=== PATIENT | female | born 1960 | race African-American/Black ===

== ENCOUNTER 2018-02-22 13:54 | Emergency (ER) | payer OTHER ==
[~2018-02-22] VITALS: Ht 165.1 cm; Wt 56.7 kg
[2018-02-22] MEDS ORDERED: MOBIC15 MG PO (14:52)
[2018-02-22 15:40] VITALS: BP 115/78
== END 2018-02-22 15:48 | disposition home or self-care (01) ==
LOC: ER 13:54
DX: S97.02XA Crushing injury of left ankle, initial encounter (principal); W23.1XXA Caught, crushed, jammed, or pinched between stationary objects, initial encounter; Y92.89 Other specified places as the place of occurrence of the external cause; Y93.89 Activity, other specified; Y99.8 Other external cause status

== ENCOUNTER 2018-06-26 12:29 | Emergency (ER) | payer OTHER ==
[~2018-06-26] VITALS: Ht 165.1 cm; Wt 64.9 kg
[~2018-06-26 12:29] MED LIST: MOBIC15 MG PO
[2018-06-26] MEDS ORDERED: VENTOLIN HFA 1818 GM INH (12:42)
[2018-06-26] MEDS ORDERED: IBUPROFEN 600600 M1 PO (12:42)
[2018-06-26 13:23] VITALS: BP 112/55
== END 2018-06-26 13:06 | disposition home or self-care (01) ==
LOC: ER 12:29
DX: M79.672 Pain in left foot (principal); Z76.0 Encounter for issue of repeat prescription; J45.909 Unspecified asthma, uncomplicated

== ENCOUNTER 2019-02-22 15:08 | Emergency (ER) | payer OTHER ==
[~2019-02-22] VITALS: Ht 165.1 cm; Wt 67.1 kg
[~2019-02-22 15:08] MED LIST changes: +IBUPROFEN 600600 M1 PO; +VENTOLIN HFA 1818 GM INH
[2019-02-22 18:04] LABS: BASOPHILS 1.3 % (0.0-2.0); EOSINOPHILS 0.5 % (0.0-3.0); HEMOGLOBIN 13.8 gm/dL (12.0-15.0); LYMPHOCYTES 37.1 % (24.0-44.0); MCHC 32.1 g/dL (28.0-37.0); MCV 81.1 fL (80.0-100.0); MONOCYTES 11.3 % (1.0-8.0); PLATELET COUNT 373 thou/uL (150-400); POLYS 49.8 % (36.0-66.0); RBC 5.31 mil/uL (4.20-5.00); RDW 13.8 % (10.5-14.5)
[2019-02-22 18:14] LABS: CREATININE 0.6 mg/dL (0.6-1.0); POTASSIUM 3.5 mmol/L (3.5-5.1)
[2019-02-22 18:20] LABS: ALBUMIN 4.6 g/dL (3.4-5.0); TOTAL BILIRUBIN 0.3 mg/dL (<0.1-1.0)
[2019-02-22] MEDS ORDERED: DOXYCYCLINE 10100 MG PO (19:05)
[2019-02-22] MEDS ORDERED: PREDNISONE 20 M20 MG PO (19:05)
[2019-02-22] MEDS ORDERED: VENTOLIN HFA 1818 GM INH (19:05)
[2019-02-22] MEDS ORDERED: SINGULAIR 10 MG10 M1 PO (19:15)
[2019-02-22] MEDS ORDERED: FLONASE 0.05%50 MCG NARES (19:15)
[2019-02-22 19:24] VITALS: BP 145/89
== END 2019-02-22 19:30 | disposition home or self-care (01) ==
LOC: ER 15:08
PROVIDERS: Physician Assistant
DX: J45.901 Unspecified asthma with (acute) exacerbation (principal); J47.9 Bronchiectasis, uncomplicated